=== PATIENT | female | born 1950 | race Caucasian/White ===

== ENCOUNTER → 2019-03-15 | Outpatient (CLI) | payer OTHER ==
--- NOTE | 2019-03-15 13:16 | Diagnostic Imaging Report ---
PROCEDURE: CT right upper extremity without contrast. TECHNIQUE: Multiple contiguous axial images were obtained through the right upper extremity without the use of intravenous contrast. Sagittal and coronal reformations were then performed. Auto Exposure Controls were utilized during the CT exam to meet ALARA standards for radiation dose reduction. INDICATION: Fell, wrist pain. COMPARISON: There are no prior studies available for comparison. FINDINGS: There is an orthopedic plate and screw fixation device along the dorsal aspect of the distal radius. The orthopedic hardware seems to be in good position. The proximal-most portion of the hardware was not included on this study, however. There is slight irregularity of the base of the fifth metacarpal. This does suggest a nondisplaced minimally impacted and comminuted fracture. No other fracture or acute bony abnormality is noted. There does appear to be a long-standing avulsion fracture of the ulnar styloid. There is moderate narrowing of the radiocarpal joint. The soft tissues are unremarkable. IMPRESSION: 1. There is a nondisplaced minimally impacted comminuted fracture of the base of the fifth metacarpal. There is no acute bony abnormality noted otherwise. 2. There are postsurgical and post-traumatic changes involving the distal radius. There is also a long-standing avulsion fracture of the ulnar styloid. Dictated by: Dictated on workstation # [id number]
== END ==
LOC: RAD 12:13
PROVIDERS: ATTEND Nurse Practitioner
DX: S63.501D Unspecified sprain of right wrist, subsequent encounter (principal); S52.611K Displaced fracture of right ulna styloid process, subsequent encounter for closed fracture with nonunion; S52.61 Fracture of ulna styloid process; Z91.81 History of falling; Z98.890 Other specified postprocedural states
CPT/HCPCS: 73200

== ENCOUNTER 2019-09-10 16:11 | Emergency (ER) | payer MEDICARE, OTHER ==
[~2019-09-10] VITALS: Ht 162.6 cm; Wt 74.8 kg
--- NOTE | 2019-09-10 16:24 | ED Lower Extremity ---
General Chief Complaint: Lower Extremity Stated Complaint: RIGHT LEG SWELLING,LUMP/PAIN BEHIND KNEE Source: patient Exam Limitations: no limitations History of Present Illness Date Seen by Provider: September 10, 2019 Time Seen by Provider: 16:21 Initial Comments To ER with reports of right leg swelling for "a while". Starting yesterday she developed a painful red lump behind her right knee. No fevers or chills. No chest pain or shortness of breath. No history DVT. Takes no medications at all. Smokes about a pack of cigarettes per day. She informs me that she still works and she has to work, and she will not be staying in the hospital for any reason. Onset: other Severity: moderate Pain/Injury Location: right leg, right knee Method of Injury: unknown Modifying Factors: Worse With Movement Allergies and Home Medications Allergies Coded Allergies: Penicillins (Unverified Allergy, Unknown, 09/10/19) codeine (Unverified Allergy, Unknown, 09/10/19) Patient Home Medication List Home Medication List Reviewed: Yes Review of Systems Constitutional: see HPI; No chills, No fever EENTM: see HPI Respiratory: no symptoms reported; No cough, No dyspnea on exertion, No hemoptysis, No short of breath Cardiovascular: see HPI; No chest pain Genitourinary: no symptoms reported Musculoskeletal: no symptoms reported Skin: no symptoms reported Psychiatric/Neurological: No Symptoms Reported Past Wxhltrv-Jllvlr-Xwijbh Hx Patient Social History Recent Foreign Travel: No Contact w/Someone Who Travel: No Physical Exam Vital Signs Vital Signs - First Documented 09/10/19 16:19 Temp 36.8 Pulse 84 Resp 18 B/P (MAP) 124/83 (97) O2 Delivery Room Air Capillary Refill : Height, Weight, BMI Height: '" Weight: lbs. oz. kg; BMI Method: General Appearance: WD/WN, no apparent distress Respiratory: lungs clear, normal breath sounds, no respiratory distress, no accessory muscle use Gastrointestinal: normal bowel sounds, non tender, soft Hips: bilateral hip non-tender, bilateral hip normal inspection, bilateral hip normal range of motion Legs: right leg other (to the medial posterior aspect of the right leg there is an area of erythema and induration that measures about 4 or 5 cm wide by about 12-15 cm long. There are some engorged varicose veins distal to this.) Knees: bilateral knee non-tender, bilateral knee normal inspection, bilateral knee normal range of motion Ankles: bilateral ankle non-tender, bilateral ankle normal inspection, bila teral ankle normal range of motion Feet: bilateral foot non-tender, bilateral foot normal inspection, bilateral foot normal range of motion Neurologic/Psychiatric: alert, normal mood/affect, oriented x 3 Skin: normal color, warm/dry Progress/Results/Core Measures Results/Orders My Orders Orders - NIVIA ZAMAN APRN Venous Lower Ext Rt (09/10/19 ) Vital Signs/I&O 09/10/19 16:19 Temp 36.8 Pulse 84 Resp 18 B/P (MAP) 124/83 (97) O2 Delivery Room Air Departure Impression Primary Impression: Superficial thrombophlebitis Qualified Codes: I80.01 - Phlebitis and thrombophlebitis of superficial vessels of right lower extremity Disposition: HOME, SELF-CARE Condition: Stable Departure-Patient Inst. Decision time for Depature: 17:08 Referrals: [facility] (PCP/Family) Primary Care Physician Patient Instructions: Superficial Phlebitis Add. Discharge Instructions: warm compresses to the area return to er for any concerns. use aspirin or ibuprofen for pain and redness. follow up with your doc later this week. All discharge instructions reviewed with patient and/or family. Voiced understanding. NIVIA ZAMAN APRN September 10, 2019 16:24
[2019-09-10 17:34] VITALS: BP 124/62
--- NOTE | 2019-09-10 18:10 | Diagnostic Imaging Report ---
PROCEDURE: US right lower extremity venous. TECHNIQUE: Multiple real-time grayscale images were obtained over the right lower extremity in various projections. Additional spectral analysis and color Doppler duplex images were also obtained. INDICATION: Redness in mid thigh and behind the knee and upper medial calves. FINDINGS: Right lower extremity venous Doppler demonstrates thrombus within the greater saphenous vein extending from the mid thigh to the mid calf. No DVT is present. IMPRESSION: There is occlusive thrombus in the greater saphenous vein. Dictated by: Dictated on workstation # [id number]
--- OUTSIDE RECORDS SUMMARY | 2019-09-10 20:40 | XMS REPORT ---
Author Author Peyton CARVALHO Organization [facility] Address [address] [place] [address] Care Team Providers Care Black Topper Name Role Phone JODY CARVALHO Unavailable PROBLEMS Unknown Problems ALLERGIES Substance Reaction Event Type Date Status Penicillin V Potassium Unknown Drug Allergy Dec, Activ e Codeine Phosphate Unknown Drug Allergy Dec, Active ENCOUNTERS Encounter Location Date Diagnosis [facility] [id number] [place], [place] [id number] Dec, Dental examination Z01.20 [facility] [address] [id number] [facility] S [id number] Nov, Poison donya dermatitis L23.7 ; Itching L2 9.9 and Edema of face R60.0 IMMUNIZATIONS No Known Immunizations SOCIAL HISTORY Never Assessed REASON FOR VISIT ARIANNA Pendleton PLAN OF CARE VITAL SIGNS Height 64 in 2018-01-03 Blood pressure systolic 118 mmHg 2018-01-03 Blood pressure diastolic 70 mmHg 2018-01-03 MEDICATIONS Medication Instructions Dosage Frequency Start Date End Date Duration S tatus Amoxicillin 500 MG Orally every 8 hrs 2 capsules STAT, 1 capsule 8h Dec, Dec, 10 day(s) Active RESULTS No Results PROCEDURES Procedure Date Ordered Result Body Site COMP ORAL EVALUATION - NEW/EST PT Jan 03, 2018 INTRAORL-PERIAPICAL 1 FILM 37322 Jan 03, 2018 INTRAORL-PERIAPICAL EA ADD FILM Jan 03, 2018 INTRAORL-PERIAPICAL EA ADD FILM Jan 03, 2018 PANORAMIC FILM SEE ALSO CODE [id number] Jan 03, 2018 INTRAORL-PERIAPICAL EA ADD FILM Jan 03, 2018 INTRAORL-PERIAPICAL EA ADD FILM Jan 03, 2018 INTRAORL-PERIAPICAL EA ADD FILM Jan 03, 2018 INTRAORL-PERIAPICAL EA ADD FILM Jan 03, 2018 INSTRUCTIONS MEDICATIONS ADMINISTERED No Known Medications MEDICAL (GENERAL) HISTORY Type Description Date Surgical History Surgery for Broken Arm (2007 on RT arm a nd 2013 on LT)
--- OUTSIDE RECORDS SUMMARY | 2019-09-10 20:40 | XMS REPORT ---
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 Phone WOLFF ROGER JUANCARLOS Unavailable PROBLEMS Unknown Problems ALLERGIES No Known Allergies ENCOUNTERS Encounter Location Date Diagnosis [facility] [id number] [id number] Dec, 2017 Dental examination Z01.20 [facility] [address] [id number] [place] [id number] Nov, Poison donya dermatitis L23.7 ; Itching L2 9.9 and Edema of face R60.0 IMMUNIZATIONS Vaccine Route Administration Date Status KENALOG 40 MG/ML (PER 10 MG) IM Intramuscular Dec 19, 2017 Ad ministered DEXAMETHASONE 20MG/5 ML (PER 1 MG) IM Intramuscular Dec 19, 2017 Administered SOCIAL HISTORY Never Assessed REASON FOR VISIT pt was pulling weeds Tuesday afternoon, Tuesday afternoon she noticed a rash on both arms and Tuesday night it had spread to her face. Also has swelling in fac e. She thinks it is poison donya.KRISTY Neves PLAN OF CARE Activity Details Follow Up prn Reason: VITAL SIGNS Height 64 in 2017-12-19 Weight 159.4 lbs 2017-12-19 Temperature 98.1 degrees Fahrenheit 2017-12-19 Heart Rate 95 bpm 2017-12-19 Respiratory Rate 18 2017-12-19 BMI 27.36 kg/m2 2017-12-19 Blood pressure systolic 128 mmHg 2017-12-19 Blood pressure diastolic 82 mmHg 2017-12-19 MEDICATIONS Medication Instructions Dosage Frequency Start Date End Date Duration S tatus PredniSONE 10 mg Orally Once a day 1 tablet 24h Nov, Nov, 10 days Active RESULTS No Results PROCEDURES Procedure Date Ordered Result Body Site DEXAMETHASONE 20MG/5 ML (PER 1 MG) Dec 19, 2017 THER/PROPH/DIAG INJ, SC/IM Dec 19, 2017 [facility] VISIT NEW PATIENT Dec 19, 2017 KENALOG 40 MG/ML (PER 10 MG) Dec 19, 2017 INSTRUCTIONS MEDICATIONS ADMINISTERED No Known Medications MEDICAL (GENERAL) HISTORY Type Description Date Surgical History Surgery for Broken Arm (2006 on RT arm a nd 2013 on LT)
--- OUTSIDE RECORDS SUMMARY | 2019-09-10 20:40 | XMS REPORT | Continuity of Care Document ---
Author Organization Unknown Address Unknown Phone Unavailable Allergies Active Description Code Type Severity Reaction Onset Reported/Identified Relationship to Patient Clinical Status Yes codeine [id number] Drug Allergy Unknown N/A 09/10/2019 Yes Penicillins [id number] Drug Aller gy Unknown N/A 09/10/2019 Medications There is no data. Problems Date Dx Coded Attending Type Code Diagnosis Diagnosed By 09/10/2019 NWAGWU, ISIDORE O COLOR EXPERT Ot S52.611K DISP FX OF R ULNA STYLOID PRO, SUBS FOR 09/10/2019 NWAGWU, ISIDORE O COLOR EXPERT Ot S52.614P NONDISP FX OF R ULNA STYLOID PRO, 7THP 09/10/2019 NWAGWU, ISIDORE O COLOR EXPERT Ot S63.501D UNSPECIFIED SPRAIN OF RIGHT WRIST, SUBSE 09/10/2019 NWAGWU, ISIDORE O COLOR EXPERT Ot Z91.81 HISTORY OF FALLING 09/10/2019 NWAGWU, ISIDORE O COLOR EXPERT Ot Z98.890 OTHER SPECIFIED POSTPROCEDURAL STATES 09/10/2019 NWAGWU, ISIDORE O COLOR EXPERT Ot S52.611K DISP FX OF R ULNA STYLOID PRO, SUBS FOR 09/10/2019 NWAGWU, ISIDORE O COLOR EXPERT Ot S52.614P NONDISP FX OF R ULNA STYLOID PRO, 7THP 09/10/2019 NWAGWU, ISIDORE O COLOR EXPERT Ot S63.501D UNSPECIFIED SPRAIN OF RIGHT WRIST, SUBSE 09/10/2019 NWAGWU, ISIDORE O COLOR EXPERT Ot Z91.81 HISTORY OF FALLING 09/10/2019 NWAGWU, ISIDORE O COLOR EXPERT Ot Z98.890 OTHER SPECIFIED POSTPROCEDURAL STATES Procedures There is no data. Results There is no data. Encounters ACCT No. Visit Date/Time Discharge Status Pt. Type Provider Facility Loc./Unit Complaint [id number] 03/15/2019 12:13:00 019 23:59:59 CLS Outpatient VIVIEN MONTEMAYOR APRN [facility] RAD PAIN IN RT WRIS T,SPRAIN IN RT WRIST [id number] 09/10/2019 16:14:[address] Emergency NIVIA ZAMAN APRN [facility] ER RIGHT LEG SWELLING,LUMP/PAIN BEHIND KNEE
== END 2019-09-10 17:34 | disposition home or self-care (01) ==
LOC: EDUNIT# 16:11 → ER 16:14
DX: I80.01 Phlebitis and thrombophlebitis of superficial vessels of right lower extremity (principal); F17.210 Nicotine dependence, cigarettes, uncomplicated; Z88.0 Allergy status to penicillin; Z88.5 Allergy status to narcotic agent

== ENCOUNTER → 2020-08-29 | Outpatient (CLI) | payer MEDICARE ==
--- NOTE | 2020-08-29 15:25 | Diagnostic Imaging Report ---
PROCEDURE: US right lower extremity venous. TECHNIQUE: Multiple real-time grayscale images were obtained over the right lower extremity in various projections. Additional spectral analysis and color Doppler duplex images were also obtained. INDICATION: Right leg pain. Comparison: Non available. Findings: The right common femoral, femoral and popliteal veins are patent by color doppler imaging and without DVT. Visualized proximal aspects of the greater saphenous, deep femoral, posterior tibial and peroneal veins are also patent. All of the evaluated deep venous structures demonstrate normal compressibility and waveform augmentation where applicable. Impression: No right lower extremity deep venous thrombosis (DVT). Dictated by: Dictated on workstation # [id number]
== END ==
LOC: RAD 14:17
PROVIDERS: ATTEND Nurse Practitioner Family
DX: M79.89 Other specified soft tissue disorders (principal); I86.8 Varicose veins of other specified sites; M79.604 Pain in right leg